=== PATIENT | male | born 1970 | race African-American/Black ===

== ENCOUNTER 2018-09-23 20:03 | Emergency (ER) | payer SELFPAY ==
[2018-09-23 21:44] LABS: Absolute Lymphocytes (CBC) 1.9 K/uL (0.7-4.9); Absolute Neutrophil 9.2 K/uL (1.8-8.0); Basophils % 0.9 % (0-1.3); Eosinophils % 0.5 % (0-4.4); Hematocrit 33.4 % (39.6-49.0); Lymphocytes % 15.2 % (15.3-44.8); MPV 8.7 fL (7.6-11.3); Monocytes % 7.9 % (3.3-12.3); RBC Red Blood Cell Count 3.43 M/uL (4.33-5.43)
[2018-09-23] MEDS ORDERED: NA CHLORIDE 0.9% 500 ML ONE (21:48)
[2018-09-23] MEDS ORDERED: CLINDAMYCIN 900MG/D5W 900 MG/50 ML IVPB IV ONE (21:48)
[2018-09-23 22:01] LABS: BUN Blood Urea Nitrogen 11 mg/dL (7-18); Bicarbonate 30 mmol/L (21-32); Glucose Level 79 mg/dL (74-106); Potassium 4.1 mmol/L (3.5-5.1); Sodium Level 142 mmol/L (136-145)
--- NOTE | 2018-09-23 22:44 | ER ---
Nurse's Notes [facility] Name: Xavi Singh Age: 48 yrs Sex: Male : 1970 Arrival Date: 09/23/2018 Time: 20:17 Bed 6 Private MD: Diagnosis: Dental abscess Presentation: 09/23 20:19 Presenting complaint: Patient states: He has a bad tooth and yesterday his face started aj1 swelling on the right side. Denies shortness of breath. Transition of care: patient was not received from another setting of care. Onset of symptoms was September 22, 2018. Risk Assessment: Do you want to hurt yourself or someone else? Patient reports no desire to harm self or others. Initial Sepsis Screen: Does the patient meet any 2 criteria? No. Patient's initial sepsis screen is negative. Does the patient have a suspected source of infection? No. Patient's initial sepsis screen is negative. Care prior to arrival: None. 20:19 Method Of Arrival: Ambulatory aj1 20:19 Acuity: REAL 4 aj1 Triage Assessment: 20:20 General: Appears in no apparent distress. uncomfortable, Behavior is calm, cooperative, aj1 appropriate for age. Pain: Complains of pain in mouth Pain currently is 10 out of 10 on a pain scale. Neuro: Level of Consciousness is awake, alert, obeys commands. Cardiovascular: Patient's skin is warm and dry. Respiratory: Airway is patent Respiratory effort is even, unlabored, Respiratory pattern is regular, symmetrical. Historical: - Allergies: 20:20 No Known Allergies; aj1 - Home Meds: 20:20 None [Active]; aj1 - PMHx: 20:20 None; aj1 - PSHx: 20:20 None; aj1 - Immunization history:: Flu vaccine is not up to date. - Social history:: Smoking status: Patient uses tobacco products, smokes one pack cigarettes per day. - Ebola Screening: : Patient denies travel to an Ebola-affected area in the 21 days before illness onset. Screenin:40 Abuse screen: Denies threats or abuse. Nutritional screening: No deficits noted. tl2 Tuberculosis screening: No symptoms or risk factors identified. Fall Risk None identified. Assessment: 20:40 General: Appears in no apparent distress. uncomfortable, Behavior is calm, cooperative, tl2 appropriate for age. Pain: Complains of pain in mouth. Neuro: Level of Consciousness is awake, alert, obeys commands, Oriented to person, place, time, situation. Cardiovascular: Denies chest pain. Respiratory: Airway is patent Respiratory effort is even, unlabored, Respiratory pattern is regular, symmetrical. GI: No signs and/or symptoms were reported involving the gastrointestinal system. : No signs and/or symptoms were reported regarding the genitourinary system. EENT: Poor dentition noted. Dental caries noted in upper right second molar (#2), upper right first molar (#3), lower right first molar (#30) and lower right second molar (#31). Derm: Skin is pink, warm \T\ dry. Vital Signs: 20:20 BP 128 / 73; Pulse 86; Resp 18; Temp 98.1; Pulse Ox 99% on R/A; Weight 86.64 kg (R); aj1 Height 6 ft. 1 in. (185.42 cm) (R); Pain 10/10; 23:26 BP 119 / 70; Pulse 82; Resp 18; Pulse Ox 99% on R/A; tl2 20:20 Body Mass Index 25.20 (86.64 kg, 185.42 cm) aj1 ED Course: 20:17 Patient arrived in ED. aj1 20:19 Triage completed. aj1 20:20 Arm band placed on Patient placed in an exam room. aj1 20:55 Brian Padilla PA is PHCP. cp 20:55 Denis Villela MD is Attending Physician. cp 21:13 Fatmata Monahan, MELVI is Primary Nurse. aj1 21:43 Inserted saline lock: 22 gauge in right antecubital area, using aseptic technique. tl2 Blood collected. 22:42 Helio Reyes DDS is Referral Physician. cp 23:26 Patient has correct armband on for positive identification. Bed in low position. Call tl2 light in reach. Side rails up X 1. Adult w/ patient. 23:26 No provider procedures requiring assistance completed. IV discontinued, intact, tl2 bleeding controlled, No redness/swelling at site. Pressure dressing applied. Administered Medications: 21:42 Drug: Clindamycin 900 mg Route: IVPB; Infused Over: 30 mins; Site: right antecubital; tl2 23:28 Follow up: IV Status: Completed infusion tl2 21:42 Drug: NS 0.9% 500 ml Route: IV; Rate: bolus; Site: right antecubital; tl2 23:29 Follow up: IV Status: Completed infusion; IV Intake: 500ml tl2 23:22 Drug: Hydrocodone-Acetaminophen (7.5 mg-325 mg) 1 tabs Route: PO; tl2 23:29 Follow up: Response: No adverse reaction; Medication administered at discharge. tl2 Intake: 23:29 IV: 500ml; Total: 500ml. tl2 Outcome: 22:43 Discharge ordered by MD. cp 23:26 Discharged to home ambulatory, with family. tl2 23:26 Condition: stable 23:26 Discharge instructions given to patient, Instructed on discharge instructions, follow up and referral plans. medication usage, Demonstrated understanding of instructions, follow-up care, medications, Prescriptions given X 3. 23:30 Patient left the ED. tl2 Signatures: Fatmata Monahan RN RN aj1 Brian Padilla PA PA Radha Hogue RN RN tl2 Corrections: (The following items were deleted from the chart) 23:26 20:40 BP 119 / 70; Pulse 82bpm; Resp 18bpm; Pulse Ox 99% RA; tl2 tl2
--- NOTE | 2018-09-23 22:44 | EDPHYS ---
Physician Documentation [facility] Name: Xavi Singh Age: 48 yrs Sex: Male : 1970 Arrival Date: 09/23/2018 Time: 20:17 Bed 6 Private MD: ED Physician Denis Villela HPI: 09/23 21:10 This 48 yrs old Black Male presents to ER via Ambulatory with complaints of Facial cp Swelling. 21:10 The patient presents with pain, swelling. The problem is located in the right upper cp tooth. 21:10 Onset: The symptoms/episode began/occurred yesterday, and became worse today. Duration: cp The symptoms are continuous, and are steadily getting worse. Associated signs and symptoms: Pertinent negatives: fever, inability to eat. Severity of symptoms: in the emergency department the symptoms are unchanged, despite home interventions. Historical: - Allergies: 20:20 No Known Allergies; aj1 - Home Meds: 20:20 None [Active]; aj1 - PMHx: 20:20 None; aj1 - PSHx: 20:20 None; aj1 - Immunization history:: Flu vaccine is not up to date. - Social history:: Smoking status: Patient uses tobacco products, smokes one pack cigarettes per day. - Ebola Screening: : Patient denies travel to an Ebola-affected area in the 21 days before illness onset. ROS: 21:15 Constitutional: Negative for body aches, chills, fever, poor PO intake. cp 21:15 Eyes: Negative for injury, pain, redness, and discharge. cp 21:15 ENT: Positive for dental pain, Negative for drainage from ear(s), ear pain, difficulty swallowing, difficulty handling secretions. 21:15 Respiratory: Negative for cough, shortness of breath, wheezing. 21:15 Abdomen/GI: Negative for abdominal pain, nausea, vomiting, and diarrhea. 21:15 Skin: Positive for swelling, of the face. 21:15 All other systems are negative. Exam: 21:22 Constitutional: The patient appears in no acute distress, alert, awake, non-toxic, well cp developed, well nourished. 21:22 Head/face: Noted is swelling, that is mild, of the right cheek. cp 21:22 Eyes: Periorbital structures: appear normal, Pupils: equal, round, and reactive to light and accomodation, Extraocular movements: intact throughout, Conjunctiva: normal, no exudate, no injection, Sclera: no appreciated abnormality, Lids and lashes: appear normal, bilaterally. 21:22 ENT: External ear(s): are unremarkable, Ear canal(s): are normal, clear, TM's: dullness, bilaterally, Nose: is normal, Mouth: Lips: moist, Oral mucosa: pink and intact, moist, Posterior pharynx: Airway: no evidence of obstruction, patent, Tonsils: are normal in appearance, Dental exam: abscess, that is moderate, specifically in the upper right cuspid (#6), dental caries, that is severe, diffusely, pain, Voice: is normal. 21:22 Chest/axilla: Inspection: normal, Palpation: is normal, no crepitus, no tenderness. 21:22 Cardiovascular: Rate: normal, Rhythm: regular. 21:22 Respiratory: the patient does not display signs of respiratory distress, Respirations: normal, no use of accessory muscles, no retractions, no splinting, no tachypnea, Breath sounds: are clear throughout, no decreased breath sounds, no stridor, no wheezing. 21:22 Abdomen/GI: Inspection: abdomen appears normal, Palpation: abdomen is soft and non-tender, in all quadrants. 21:22 Neuro: Orientation: to person, place \T\ time. Mentation: is normal. Vital Signs: 20:20 BP 128 / 73; Pulse 86; Resp 18; Temp 98.1; Pulse Ox 99% on R/A; Weight 86.64 kg (R); aj1 Height 6 ft. 1 in. (185.42 cm) (R); Pain 10/10; 23:26 BP 119 / 70; Pulse 82; Resp 18; Pulse Ox 99% on R/A; tl2 20:20 Body Mass Index 25.20 (86.64 kg, 185.42 cm) aj1 MDM: 20:55 Patient medically screened. cp 22:42 Data reviewed: vital signs, nurses notes, lab test result(s), and as a result, I will cp discharge patient. 22:42 Counseling: I had a detailed discussion with the patient and/or guardian regarding: the cp historical points, exam findings, and any diagnostic results supporting the discharge/admit diagnosis, lab results, the need for outpatient follow up, a dentist, to return to the emergency department if symptoms worsen or persist or if there are any questions or concerns that arise at home. ED course: VSS. Abscess drained with manual palpation of area. Will discharge to home for continued monitoring. 09/23 21:05 Order name: CBC with Diff; Complete Time: 22:42 cp 09/23 22:42 Interpretation: Normal except: WBC 12.2; RBC 3.43; HGB 11.5; HCT 33.4; CHRIS% 75.5; LYM% cp 15.2; NEUT A 9.2. 09/23 21:05 Order name: BMP; Complete Time: 22:42 cp 09/23 21:05 Order name: IV; Complete Time: 21:33 cp Administered Medications: 21:42 Drug: Clindamycin 900 mg Route: IVPB; Infused Over: 30 mins; Site: right antecubital; tl2 23:28 Follow up: IV Status: Completed infusion tl2 21:42 Drug: NS 0.9% 500 ml Route: IV; Rate: bolus; Site: right antecubital; tl2 23:29 Follow up: IV Status: Completed infusion; IV Intake: 500ml tl2 23:22 Drug: Hydrocodone-Acetaminophen (7.5 mg-325 mg) 1 tabs Route: PO; tl2 23:29 Follow up: Response: No adverse reaction; Medication administered at discharge. tl2 Disposition: 23:45 Chart complete. cp Disposition: 09/23/18 22:43 Discharged to Home. Impression: Dental abscess. - Condition is Stable. - Discharge Instructions: Dental Abscess, Dental Pain. - Prescriptions for Clindamycin HCl 300 mg Oral Capsule - take 1 capsule by ORAL route every 6 hours for 10 days; 40 capsule. Ibuprofen 800 mg Oral Tablet - take 1 tablet by ORAL route every 8 hours As needed take with food; 30 tablet. Tylenol- Codeine #3 300-30 mg Oral Tablet - take 2 tablets by ORAL route every 6 hours As needed no driving while taking medication; 15 tablet. - Medication Reconciliation Form, Thank You Letter, Antibiotic Education, Prescription Opioid Use form. - Follow up: Helio Reyes DDS; When: 2 - 3 days; Reason: Recheck today's complaints. - Problem is new. - Symptoms have improved. Signatures: Dispatcher [employer] EDAZ Fatmata Monahan RN RN aj1 Brian Padilla PA PA cp Radha Avery RN RN tl2 Corrections: (The following items were deleted from the chart) 23:30 22:43 09/23/2018 22:43 Discharged to Home. Impression: Dental abscess. Condition is tl2 Stable. Forms are Medication Reconciliation Form, Thank You Letter, Antibiotic Education, Prescription Opioid Use. Follow up: Helio Reyes; When: 2 - 3 days; Reason: Recheck today's complaints. Problem is new. Symptoms have improved. cp
[2018-09-23] MEDS ORDERED: HYDROCODONE/APAP 7.5/325 MG TAB ONE (23:21)
== END 2018-09-23 23:30 | disposition home or self-care (01) ==
LOC: ER 20:03
DX: K04.7 Periapical abscess without sinus (principal); F17.210 Nicotine dependence, cigarettes, uncomplicated
CPT/HCPCS: 36415; 80048; 85025; 96365; 96366; 99284

== ENCOUNTER 2019-05-05 08:58 | Emergency (ER) | payer SELFPAY ==
[2019-05-05] MEDS ORDERED: ONDANSETRON 4 MG/2 ML VIAL ONE (09:52)
[2019-05-05] MEDS ORDERED: NA CHLORIDE 0.9% 1,000 ML ONE (09:52)
[2019-05-05 10:05] LABS: ALT/SGPT 24 U/L (12-78); AST/SGOT 23 U/L (15-37); Albumin 4.7 g/dL (3.4-5.0); Alkaline Phosphatase 83 U/L (45-117); BUN Blood Urea Nitrogen 33 mg/dL (7-18); Bicarbonate 28 mmol/L (21-32); Bilirubin Direct 0.2 mg/dL (0-0.2); Bilirubin Total 0.8 mg/dL (0.2-1.0); Creatine Phosphokinase 252 U/L (39-308); Glucose Level 100 mg/dL (74-106); Lipase 196 U/L (73-393); Potassium 3.5 mmol/L (3.5-5.1); Sodium Level 138 mmol/L (136-145); Troponin (Emerg Dept Use Only) < 0.02 ng/mL (0.0-0.045)
[2019-05-05 10:21] LABS: Absolute Lymphocytes (CBC) 1.7 K/uL (0.7-4.9); Basophils % 1.2 % (0-1.3); Hematocrit 45.2 % (39.6-49.0); Lymphocytes % 19.8 % (15.3-44.8); MPV 10.1 fL (7.6-11.3); RBC Red Blood Cell Count 4.69 M/uL (4.33-5.43)
[2019-05-05 10:31] LABS: Urine Blood TRACE (NEG); Urine Glucose NEGATIVE (NEG); Urine Protein 2+ (NEG); Urine Specific Gravity 1.025 (1.005-1.030)
--- NOTE | 2019-05-05 11:27 | ER ---
Nurse's Notes [facility] Name: Xavi Singh Age: 48 yrs Sex: Male : 1970 Arrival Date: 05/05/2019 Time: 09:00 Bed 4 Private MD: Diagnosis: Dehydration Presentation: 05/05 09:19 Presenting complaint: Patient states: got overheated at work 2 days ago, works outside as a sandblaster, was vomiting all day yesterday, last vomited at 2 am, this morning he tried to go to work and he broke out in a cold sweat. Transition of care: patient was not received from another setting of care. Onset of symptoms was May 05, 2019. Risk Assessment: Do you want to hurt yourself or someone else? Patient reports no desire to harm self or others. Initial Sepsis Screen: Does the patient meet any 2 criteria? No. Patient's initial sepsis screen is negative. Does the patient have a suspected source of infection? No. Patient's initial sepsis screen is negative. Care prior to arrival: None. 09:19 Method Of Arrival: Ambulatory 09:19 Acuity: REAL 3 iw Historical: - Allergies: 09:21 No Known Allergies; iw - Home Meds: 09:21 None [Active]; iw - PMHx: 09:21 None; iw - PSHx: 09:21 None; iw - Immunization history:: Adult Immunizations unknown. - Ebola Screening: : Patient negative for fever greater than or equal to 101.5 degrees Fahrenheit, and additional compatible Ebola Virus Disease symptoms Patient denies exposure to infectious person Patient denies travel to an Ebola-affected area in the 21 days before illness onset No symptoms or risks identified at this time. - Family history:: not pertinent. - Social history:: Smoking status: unknown. - Hospitalizations: : No recent hospitalization is reported. Screenin:17 Abuse screen: Denies threats or abuse. Denies injuries from another. Nutritional ph screening: On. Tuberculosis screening: No symptoms or risk factors identified. Fall Risk None identified. Assessment: 09:40 General: Appears in no apparent distress. uncomfortable, Behavior is calm, cooperative, jl7 appropriate for age. Pain: Denies pain. Neuro: Level of Consciousness is awake, alert, obeys commands, Oriented to person, place, time, situation. Cardiovascular: Patient's skin is warm and dry. Respiratory: Airway is patent Respiratory effort is even, unlabored, Respiratory pattern is regular, symmetrical. GI: Reports nausea, vomiting. : Reports dark urine. EENT: Derm: Skin is dry, Skin is normal, Skin temperature is warm. Musculoskeletal: No signs and/or symptoms reported regarding the musculoskeletal system. 10:40 Reassessment: Patient appears in no apparent distress at this time. Patient and/or jl7 family updated on plan of care and expected duration. Pain level reassessed. Patient is alert, oriented x 3, equal unlabored respirations, skin warm/dry/pink. Patient states feeling better. Vital Signs: 09:21 BP 132 / 100; Pulse 89; Resp 16; Temp 98.0(O); Pulse Ox 99% on R/A; Pain 8/10; iw 10:09 BP 144 / 92; Pulse 63; Resp 18 S; Pulse Ox 100% on R/A; jl7 10:39 BP 135 / 85; Pulse 64; Resp 16 S; Pulse Ox 100% on R/A; jl7 11:39 BP 145 / 85; Pulse 59; Resp 16 S; Pulse Ox 100% on R/A; jl7 ED Course: 09:00 Patient arrived in ED. as 09:12 Marko Phillips MD is Attending Physician. rn 09:13 Soo Ulloa, MELVI is Primary Nurse. ph 09:17 Patient has correct armband on for positive identification. Placed in gown. Bed in low ph position. Call light in reach. Side rails up X 1. Pulse ox on. NIBP on. Door closed. Noise minimized. Warm blanket given. Head of bed elevated. 09:19 Arm band placed on Patient placed in an exam room. ph 09:21 Triage completed. iw 09:37 Initial lab(s) drawn, by la, sent to lab. Inserted saline lock: 20 gauge in left jl7 forearm, using aseptic technique. Blood collected. 09:49 EKG done, by broadcast maintenance technician. reviewed by Marko Phillips MD. at1 10:23 Urine collected: clean catch specimen, clear, yanely colored. jl7 10:38 Primary Nurse role handed off by Soo Ulloa, MELVI jl7 10:38 Yusra Mas RN is Primary Nurse. jl7 11:39 No provider procedures requiring assistance completed. IV discontinued, intact, jl7 bleeding controlled, No redness/swelling at site. Pressure dressing applied. Administered Medications: 09:56 Drug: NS 0.9% 1000 ml Route: IV; Rate: 1000 ml; Site: left forearm; jl7 10:55 Follow up: IV Status: Completed infusion; IV Intake: 1000ml jl7 09:57 Drug: Zofran 4 mg Route: IVP; Site: left forearm; jl7 10:23 Follow up: Response: No adverse reaction; Nausea is decreased jl7 Intake: 10:55 IV: 1000ml; Total: 1000ml. jl7 Outcome: 11:26 Discharge ordered by . rn 11:39 Discharged to home ambulatory. jl7 11:39 Condition: stable 11:39 Discharge instructions given to patient, Instructed on discharge instructions, follow up and referral plans. Demonstrated understanding of instructions, follow-up care. 11:40 Patient left the ED. jl7 Signatures: Naomi Posey Irene, RN RN Marko Phillips MD MD rn Gonzales, Amanda, quantitative consultant EKG Tat1 Soo Ulloa RN RN Yusra Mas RN RN jl7 Corrections: (The following items were deleted from the chart) 09:19 09:18 Initial Sepsis Screen: Does the patient meet any 2 criteria? ph ph
--- NOTE | 2019-05-05 11:28 | EDPHYS ---
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 Better now, + dark urine, feels "off".. Onset: The symptoms/episode began/occurred 2 day(s) ago. Severity of symptoms: At their worst the symptoms were moderate in the emergency department the symptoms have improved. The patient has not experienced similar symptoms in the past. The patient has not recently seen a physician. Historical: - Allergies: 09:21 No Known Allergies; iw - Home Meds: 09:21 None [Active]; iw - PMHx: 09:21 None; iw - PSHx: 09:21 None; iw - Immunization history:: Adult Immunizations unknown. - Ebola Screening: : Patient negative for fever greater than or equal to 101.5 degrees Fahrenheit, and additional compatible Ebola Virus Disease symptoms Patient denies exposure to infectious person Patient denies travel to an Ebola-affected area in the 21 days before illness onset No symptoms or risks identified at this time. - Family history:: not pertinent. - Social history:: Smoking status: unknown. - Hospitalizations: : No recent hospitalization is reported. ROS: 09:23 Constitutional: Negative for fever, chills, and weight loss, Eyes: Negative for injury, rn pain, redness, and discharge, Neck: Negative for injury, pain, and swelling, Cardiovascular: Negative for chest pain, palpitations, and edema, Respiratory: Negative for shortness of breath, cough, wheezing, and pleuritic chest pain, Abdomen/GI: Negative for abdominal pain, vomiting, diarrhea, and constipation, MS/Extremity: Negative for injury and deformity, Skin: Negative for injury, rash, and discoloration, Neuro: Negative for headache, numbness, tingling, and seizure. Exam: 09:23 Constitutional: This is a well developed, well nourished patient who is awake, alert, rn and in no acute distress. Ambulatory to room without difficulty or distress Head/Face: Normocephalic, atraumatic. Eyes: Pupils equal round and reactive to light, extra-ocular motions intact. Lids and lashes normal. Conjunctiva and sclera are non-icteric and not injected. Cornea within normal limits. Periorbital areas with no swelling, redness, or edema. ENT: dry MM Neck: Trachea midline, no thyromegaly or masses palpated, and no cervical lymphadenopathy. Supple, full range of motion without nuchal rigidity, or vertebral point tenderness. No Meningismus. Cardiovascular: Regular rate and rhythm with a normal S1 and S2. No gallops, murmurs, or rubs. Normal PMI, no JVD. No pulse deficits. Respiratory: Lungs have equal breath sounds bilaterally, clear to auscultation. No increased work of breathing, no retractions or nasal flaring. Abdomen/GI: soft, non-tender, no masses MS/ Extremity: Pulses equal, no cyanosis. Neurovascular intact. Full, normal range of motion. Equal circumference. Neuro: Awake and alert, GCS 15, oriented to person, place, time, and situation. Cranial nerves II-XII grossly intact. Motor strength 5/5 in all extremities. Sensory grossly intact. Cerebellar exam normal. Normal gait. 11:01 ECG was reviewed by the Attending Physician. rn Vital Signs: 09:21 BP 132 / 100; Pulse 89; Resp 16; Temp 98.0(O); Pulse Ox 99% on R/A; Pain 8/10; iw 10:09 BP 144 / 92; Pulse 63; Resp 18 S; Pulse Ox 100% on R/A; jl7 10:39 BP 135 / 85; Pulse 64; Resp 16 S; Pulse Ox 100% on R/A; jl7 11:39 BP 145 / 85; Pulse 59; Resp 16 S; Pulse Ox 100% on R/A; jl7 MDM: 09:12 Patient medically screened. rn 11:23 Differential Diagnosis dehydration, nausea. Data reviewed: vital signs, nurses notes, cerner analyst test result(s), EKG, and as a result, I will discharge patient. Counseling: I had a detailed discussion with the patient and/or guardian regarding: the historical points, exam findings, and any diagnostic results supporting the discharge/admit diagnosis, lab results, the need for outpatient follow up, to return to the emergency department if symptoms worsen or persist or if there are any questions or concerns that arise at home. Special discussion: I discussed with the patient/guardian in detail that at this point there is no indication for admission to the hospital. It is understood, however, that if the symptoms persist or worsen the patient needs to return immediately for re-evaluation. ED course: Neg trop, nonspecific ECG, improved with fluids, sleeping comfortably, will dc home. Has next 3 days off for recuperation. Return precautions given and understood. . 05/05 09:19 Order name: CBC with Diff; Complete Time: 11:00 rn 05/05 09:19 Order name: Basic Metabolic Panel; Complete Time: 11:00 rn 05/05 09:19 Order name: Troponin (emerg Dept Use Only); Complete Time: 11:00 rn 05/05 09:19 Order name: LFT's; Complete Time: 11:00 rn 05/05 09:19 Order name: Lipase; Complete Time: 11:00 rn 05/05 09:19 Order name: CK; Complete Time: 11:00 rn 05/05 09:19 Order name: IV Start; Complete Time: 09:36 rn 05/05 09:19 Order name: EKG; Complete Time: 09:21 rn 05/05 09:19 Order name: EKG - Nurse/Tech; Complete Time: 09:36 rn 05/05 09:19 Order name: Urine Dipstick-Ancillary (obtain specimen); Complete Time: 10:23 rn 05/05 10:24 Order name: Urine Dipstick--Ancillary (enter results) eb EC:01 Rate is 63 beats/min. Rhythm is regular. QRS [place] is Normal. MA interval is normal. QRS rn interval is normal. QT interval is normal. No Q waves. T waves are Normal. No ST changes noted. Clinical impression: NSR w/ Non-specific ST/T Changes. Reviewed by me. Administered Medications: 09:56 Drug: NS 0.9% 1000 ml Route: IV; Rate: 1000 ml; Site: left forearm; jl7 10:55 Follow up: IV Status: Completed infusion; IV Intake: 1000ml jl7 09:57 Drug: Zofran 4 mg Route: IVP; Site: left forearm; jl7 10:23 Follow up: Response: No adverse reaction; Nausea is decreased jl7 Disposition: 05/05/19 11:26 Discharged to Home. Impression: Dehydration. - Condition is Stable. - Discharge Instructions: Dehydration, Adult. - Medication Reconciliation Form, Thank You Letter, Antibiotic Education, Prescription Opioid Use, Work release form form. - Follow up: Private Physician; When: As needed; Reason: Recheck today's complaints, Re-evaluation by your physician. - Problem is new. - Symptoms have improved. Signatures: Dispatcher [employer] EDNoemí Woods RN RN iw Nieto, Roman, MD MD rn Leal, Jahala, RN RN jl7 Corrections: (The following items were deleted from the chart) 11:40 11:26 05/05/2019 11:26 Discharged to Home. Impression: Dehydration. Condition is jl7 Stable. Forms are Medication Reconciliation Form, Thank You Letter, Antibiotic Education, Prescription Opioid Use. Follow up: Private Physician; When: As needed; Reason: Recheck today's complaints, Re-evaluation by your physician. Problem is new. Symptoms have improved. rn
--- NOTE | 2019-05-05 11:45 | EKG ---
Test Date: 2019-05-05 Test Time: 09:36:42 Computer Video Game Designer: RICHY MEASUREMENT RESULTS: Intervals: Rate: 63 OH: 118 QRSD: 92 QT: 400 QTc: 409 [place]: P: 60 OH: 118 QRS: 73 T: 70 INTERPRETIVE STATEMENTS: Normal sinus rhythm Voltage criteria for left ventricular hypertrophy Early repolarization Abnormal ECG No previous ECG available for comparison Electronically Signed On 05-05-19 11:44:28 CDT by Luis Dean
== END 2019-05-05 11:40 | disposition home or self-care (01) ==
LOC: ER 08:58
DX: E86.0 Dehydration (principal)
CPT/HCPCS: 36415; 80048; 80076; 81003; 82550; 83690; 84484; 85025; 93005; 96361; 96374; 99284; J2405; J7030

== ENCOUNTER 2025-01-29 12:14 | Inpatient (IN) | payer SELFPAY ==
--- NOTE | 2025-01-29 13:15 | RAD REPORT ---
EXAMINATION: ULTRASOUND DUPLEX OF SCROTUM AND TESTICLES CLINICAL INDICATION: Testicular pain TECHNIQUE: Duplex scan of the scrotal contents was performed including real-time color and spectral D oppler ultrasonography with arterial inflow and venous outflow. COMPARISON: No prior exam. FINDINGS: Right testicle measures 3.3 x 1.9 x 3.9 cm with a normal echotexture. Normal blood flow. Left testicle measures 3.5 x 1.9 x 2.9 cm with a normal echotexture. Normal blood flow. Right epididymis normal in size and echotexture. Normal blood flow Left epididymis normal in size and echotexture. Normal blood flow. 5 mm left spermatocele IMPRESSION: 5 mm left spermatocele. No significant abnormalities displayed
[2025-01-29 15:17] LABS: Absolute Basophils 0.1 K/uL (0-0.5); Absolute Lymphocytes (CBC) 2.1 K/uL (0.7-4.9); Absolute Monocytes 0.6 K/uL (0.1-1.3); Absolute Neutrophil 6.6 K/uL (1.8-8.0); Basophils % 1.3 % (0-1.3); Eosinophils % 0.4 % (0-4.4); Hematocrit 38.5 % (39.6-49.0); Lymphocytes % 22.3 % (15.3-44.8); MCH 32.3 pg (27.0-35.0); MCHC 33.8 g/dL (32.0-36.0); MCV 95.6 fL (80-100); MPV 8.5 fL (7.6-11.3); Monocytes % 6.6 % (3.3-12.3); Neutrophils % 69.4 % (41.7-73.7); Platelets 252 thou/uL (152-406); RBC Red Blood Cell Count 4.02 M/uL (4.33-5.43); Red Cell Distribution Width 13.3 % (12.1-15.2)
[2025-01-29 15:34] LABS: Albumin 3.8 g/dL (3.4-5.0); Albumin/Globulin Ratio 0.9 (1.1-1.8); Anion Gap 7.4 mEq/L (5.0-15.0); Bilirubin Total 0.6 mg/dL (0.2-1.0); Globulin 4.1 g/dL (2.3-3.5); Potassium 3.4 mEq/L (3.5-5.1); Protein, Total 7.9 g/dL (6.4-8.2)
[2025-01-29] MEDS ORDERED: MORPHINE 4 MG/ML SYR ONE (16:43)
[2025-01-29] MEDS ORDERED: ONDANSETRON 4 MG/2 ML VIAL ONE (16:43)
[2025-01-29] MEDS ORDERED: NA CHLORIDE 0.9% 1,000 ML ONE (16:44)
--- NOTE | 2025-01-29 17:50 | RAD REPORT ---
EXAMINATION: CT ABDOMEN AND PELVIS WITH CONTRAST CLINICAL INDICATION: Abdominal pain TECHNIQUE: CT abdomen and pelvis was performed, after the administration of 100 cc Isovue-300.. Sagit pj and coronal reconstructions were obtained. One or more of the following dose reduction techniques were used: Automated exposure control, adjustment of the mA and kV according to patient si ze, and iterative reconstruction. Unless otherwise specified, incidental findings do not require dedicated imaging follow-up. [id number]. Oral contrast was not given which limits evaluation of bowel and appendix. COMPARISON: .None FINDINGS: Liver, spleen, pancreas, and adrenals appear unremarkable. Small renal cysts. Bladder wall thickening. No evidence of diverticulitis. 2.2 cm low-density mass within the perineum midline. It has an enhancing wall. This has the appearanc e of an abscess. : IMPRESSION: 2.2 cm abscess perineum Thickening of the bladder wall may indicate inflammation.
--- NOTE | 2025-01-29 18:01 | ER ---
Nurse's Notes [facility] Name: Xavi Singh Age: 54 yrs Sex: Male : 1970 Arrival Date: 01/29/2025 Time: 12:14 Bed 12 Private MD: Diagnosis: 2.2cm abscess to perineum Presentation: 01/29 12:28 Chief complaint: Swelling and pain on perineum x 1 week. Coronavirus screen: At this hb time, the client does not indicate any symptoms associated with coronavirus-19. Ebola Screen: No symptoms or risks identified at this time. Initial Sepsis Screen: Does the patient meet any 2 criteria? No. Patient's initial sepsis screen is negative. Does the patient have a suspected source of infection? No. Patient's initial sepsis screen is negative. Risk Assessment: Do you want to hurt yourself or someone else? Patient reports no desire to harm self or others. Onset of symptoms was January 23, 2025. 12:28 Method Of Arrival: Ambulatory hb 12:30 Acuity: REAL 3 hb Historical: - Allergies: 12:29 No Known Allergies; hb - Home Meds: 12:29 None [Active]; hb - PMHx: 12:29 Hypertensive disorder; hb - PSHx: 12:29 None; hb - Immunization history:: Adult Immunizations up to date. - Infectious Disease History:: Denies. - Social history:: Smoking status: Patient reports the use of cigarette tobacco products, Reported history of juuling and/or vaping. Screenin:59 [facility] ED Fall Risk Assessment (Adult) History of falling in the last 3 months, jb4 including since admission No falls in past 3 months (0 pts) Confusion or Disorientation No (0 pts) Intoxicated or Sedated No (0 pts) Impaired Gait No (0 pts) Mobility Assist Device Used No (0 pt) Altered Elimination No (0 pt) Score/Fall Risk Level 0 - 2 = Low Risk Oriented to surroundings, Maintained a safe environment. Abuse screen: Denies threats or abuse. Nutritional screening: No deficits noted. Tuberculosis screening: No symptoms or risk factors identified. Assessment: 15:10 Reassessment: No changes from previously documented assessment. Patient and/or family ll1 updated on plan of care and expected duration. Pain level reassessed. 15:30 General: Appears in no apparent distress. comfortable, Behavior is calm, cooperative, jb4 appropriate for age. Pain: Complains of pain in groin Pain does not radiate. Pain currently is 3 out of 10 on a pain scale. Neuro: Level of Consciousness is awake, alert, obeys commands, Oriented to person, place, time, situation. Cardiovascular: Patient's skin is warm and dry. Respiratory: Airway is patent Respiratory effort is even, unlabored, Respiratory pattern is regular, symmetrical. Derm: Skin is intact, Skin is pink, warm \T\ dry. Musculoskeletal: Circulation, motion, and sensation intact. Range of motion: intact in all extremities. 16:18 Reassessment: Patient appears in no apparent distress at this time. Patient and/or jb4 family updated on plan of care and expected duration. Pain level reassessed. Patient is alert, oriented x 3, equal unlabored respirations, skin warm/dry/pink. 17:00 Reassessment: Patient appears in no apparent distress at this time. Patient and/or jb4 family updated on plan of care and expected duration. Pain level reassessed. Patient is alert, oriented x 3, equal unlabored respirations, skin warm/dry/pink. 19:00 Reassessment: Patient appears in no apparent distress at this time. Patient and/or jb4 family updated on plan of care and expected duration. Pain level reassessed. Patient is alert, oriented x 3, equal unlabored respirations, skin warm/dry/pink. 20:00 Reassessment: Patient appears in no apparent distress at this time. Patient and/or jb4 family updated on plan of care and expected duration. Pain level reassessed. Patient is alert, oriented x 3, equal unlabored respirations, skin warm/dry/pink. Vital Signs: 12:30 BP 119 / 82; Pulse 95; Resp 16; Temp 98.5; Pulse Ox 100% on R/A; Weight 73.48 kg; hb Height 6 ft. 1 in. ; Pain 8/10; 16:26 BP 120 / 91; Pulse 70; Resp 16; Pulse Ox 100% on R/A; jb4 19:34 BP 146 / 91; Pulse 67; Resp 16; Pulse Ox 97% on R/A; jb4 12:30 Body Mass Index 21.37 (73.48 kg, 185.42 cm) hb 12:30 Pain Scale: Adult hb ED Course: 12:18 Patient arrived in ED. al6 12:18 Argel[facility] Weeks [facility]C [facility]. kb 12:18 Godwin Dejesus MD is Attending Physician. kb 12:30 Triage completed. hb 12:30 Arm band placed on. hb 13:02 US Scrotum Testicles In Process Unspecified. EDMS 14:29 Patient placed in an exam room, on a stretcher. kb3 14:47 Roman Lemus, MELVI is Primary Nurse. ll1 14:47 Patient has correct armband on for positive identification. Bed in low position. ll1 Provided Education on: ER procedures and process. Warm blanket given. 15:00 Missed attempt(s): 22 gauge in right antecubital area. Bleeding controlled, band aid ll1 applied, catheter tip intact. 15:10 Inserted saline lock: 20 gauge in right antecubital area, using aseptic technique. ll1 Blood collected. Flushed with 10 mL NS. 16:37 CT Abd/Pelvis - IV Contrast Only In Process Unspecified. EDMS 18:01 Wai Phillips MD is Hospitalizing Provider. kb 20:59 No provider procedures requiring assistance completed. Patient admitted, IV remains in jb4 place. Administered Medications: 16:58 Drug: NS 0.9% IV 1000 ml IV at 1000 ml once; to be given as a bolus over 60 minutes jb4 Route: IV; Rate: 1000 ml; Site: right antecubital; 19:35 Follow up: Response: No adverse reaction; IV Status: Completed infusion; IV Intake: jb4 1000ml 16:58 Drug: Ondansetron IVP 4 mg IVP once; over 2 minutes Route: IVP; Site: right antecubital;jb4 19:35 Follow up: Response: No adverse reaction; Marked relief of symptoms jb4 16:58 Drug: morphine IVP or IV 4 mg IVP once over 4 mins Route: IVP; Infused Over: 4 mins; jb4 Site: right antecubital; 19:35 Follow up: Response: No adverse reaction; Marked relief of symptoms jb4 18:20 Drug: Nicoderm CQ Transdermal Patch 21 mg/24 hr 21 mg Transdermal once Route: jb4 Transdermal; Site: affected area; 18:26 Drug: Piperacillin-Tazobactam IVPB 3.375 grams IVPB once over 60 mins; (mix in NS 100 jb4 mL) Route: IVPB; Infused Over: 60 mins; Site: right antecubital; 19:34 Follow up: Response: No adverse reaction; IV Status: Completed infusion; IV Intake: jb4 100ml Intake: 19:34 IV: 100ml; Total: 100ml. jb4 19:35 IV: 1000ml; Total: 1100ml. jb4 Outcome: 18:01 Decision to Hospitalize by Provider. kb 20:59 Admitted to Tele accompanied by nurse, via wheelchair, room 423, with chart, jb4 20:59 Condition: stable 20:59 Discharge instructions given to patient, Instructed on the need for admit, Demonstrated understanding of instructions, 21:01 Patient left the ED. jb4 Signatures: Dispatcher [employer] EDMS Argelia Weeks, DOSIMETRIST-C DOSIMETRIST-CkJennifer Baron, RN RN Renard Flannery RN RN jb4 Roman Lemus RN RN ll1 Mamie Sung RN RN kb3 Shahana Nelson
--- NOTE | 2025-01-29 18:01 | EDPHYS ---
Physician Documentation [facility] Name: Xavi Singh Age: 54 yrs Sex: Male : 1970 Arrival Date: 01/29/2025 Time: 12:14 Bed 12 Private MD: ED Physician Godwin Dejesus HPI: 01/29 12:30 This 54 yrs old Black Male presents to ER via Ambulatory with complaints of Groin Pain. kb 12:30 Pt is a 54 year old male who presents for swelling and irritation to area between kb scrotum and rectum that started one week ago. States the swollen area is golf ball size. Historical: - Allergies: 12:29 No Known Allergies; hb - Home Meds: 12:29 None [Active]; hb - PMHx: 12:29 Hypertensive disorder; hb - PSHx: 12:29 None; hb - Immunization history:: Adult Immunizations up to date. - Infectious Disease History:: Denies. - Social history:: Smoking status: Patient reports the use of cigarette tobacco products, Reported history of juuling and/or vaping. ROS: 12:31 Constitutional: As per HPI kb Exam: 12:31 Constitutional: This is a well developed, well nourished patient who is awake, alert, kb and in no acute distress. Head/Face: Normocephalic, atraumatic. ENT: Moist Mucous membranes Cardiovascular: Regular rate Respiratory: Respirations even and unlabored. No increased work of breathing. Talking in full sentences Abdomen/GI: Soft, non-tender. No distention MS/ Extremity: Pulses equal, no cyanosis. Neurovascular intact. Full, normal range of motion. Neuro: Awake and alert, GCS 15, oriented to person, place, time, and situation. Vital Signs: 12:30 BP 119 / 82; Pulse 95; Resp 16; Temp 98.5; Pulse Ox 100% on R/A; Weight 73.48 kg; hb Height 6 ft. 1 in. ; Pain 8/10; 16:26 BP 120 / 91; Pulse 70; Resp 16; Pulse Ox 100% on R/A; jb4 19:34 BP 146 / 91; Pulse 67; Resp 16; Pulse Ox 97% on R/A; jb4 12:30 Body Mass Index 21.37 (73.48 kg, 185.42 cm) hb 12:30 Pain Scale: Adult hb MDM: 12:18 Medical Screening Exam initiated kb 17:59 Differential diagnosis: torsion, abscess, Kacey's. Data reviewed: vital signs, kb nurses notes. Consideration of Admission/Observation Patient was admitted/placed on observation. Escalation of care including admission/observation considered. Management of patient was discussed with the following: Photographer: Dr Posey accepts pt for consult. Wants pt admitted to hospitalistjadeno after midnight. Counseling: I had a detailed discussion with the patient and/or guardian regarding the historical points, exam findings, and any diagnostic results supporting the discharge/admit diagnosis, lab results, radiology results, the need for further work-up and treatment in the hospital. 18:03 Management of patient was discussed with the following: Hospitalist: JADEN Mark accepts kb pt for admission under Dr Phillips. 01/29 14:54 Order name: CBC with Diff; Complete Time: 15:21 kb 01/29 14:54 Order name: CMP; Complete Time: 15:35 kb 01/29 12:30 Order name: US Scrotum Testicles; Complete Time: 13:16 kb 01/29 14:54 Order name: CT Abd/Pelvis - IV Contrast Only; Complete Time: 17:52 kb 01/29 19:23 Order name: Dr Edyta Posey EDNM 01/29 14:54 Order name: IV Start; Complete Time: 15:10 kb Administered Medications: 16:58 Drug: NS 0.9% IV 1000 ml IV at 1000 ml once; to be given as a bolus over 60 minutes jb4 Route: IV; Rate: 1000 ml; Site: right antecubital; 19:35 Follow up: Response: No adverse reaction; IV Status: Completed infusion; IV Intake: jb4 1000ml 16:58 Drug: Ondansetron IVP 4 mg IVP once; over 2 minutes Route: IVP; Site: right antecubital;jb4 19:35 Follow up: Response: No adverse reaction; Marked relief of symptoms jb4 16:58 Drug: morphine IVP or IV 4 mg IVP once over 4 mins Route: IVP; Infused Over: 4 mins; jb4 Site: right antecubital; 19:35 Follow up: Response: No adverse reaction; Marked relief of symptoms jb4 18:20 Drug: Nicoderm CQ Transdermal Patch 21 mg/24 hr 21 mg Transdermal once Route: jb4 Transdermal; Site: affected area; 18:26 Drug: Piperacillin-Tazobactam IVPB 3.375 grams IVPB once over 60 mins; (mix in NS 100 jb4 mL) Route: IVPB; Infused Over: 60 mins; Site: right antecubital; 19:34 Follow up: Response: No adverse reaction; IV Status: Completed infusion; IV Intake: jb4 100ml Disposition Summary: 01/29/25 18:01 Hospitalization Ordered Notes: Hospitalization Status: Observation kb Provider: Wai Phillips Location: Telemetry/MedSurg (observation) kb Condition: Stable kb Problem: new kb Symptoms: are unchanged kb Bed/Room Type: Standard Room Assignment: 423(01/29/25 19:36) vk Diagnosis - 2.2cm abscess to perineum kb Forms: - Medication Reconciliation Form kb - SBAR form kb - Leadership Thank You Letter kb Signatures: Dispatcher [employer] EDMS Argelia Weeks, COOKER CHIP-C COOKER CHIP-Ckb Jennifer Chavira, RN RN Renard Flannery RN RN Kaitlin Aponte Corrections: (The following items were deleted from the chart) 14:55 14:55 CBC+H.LAB.BRZ ordered. EDMS EDMS 14:55 14:55 COMPREHENSIVE METABOLIC PANEL+C.LAB.BRZ ordered. EDMS EDMS 14:55 14:55 Abdomen Pelvis W Con+CT.RAD.BRZ ordered. EDMS EDMS 19:36 18:01 kb vk
[2025-01-29] MEDS ORDERED: NA CHLORIDE 0.9% 100 ML ONE (18:13)
[2025-01-29] MEDS ORDERED: PIPERACIL/TAZO 3.375 GM VIAL IV ONE (18:13)
[2025-01-29] MEDS ORDERED: NICOTINE 21 MG/PAT TD ONE (18:16)
[2025-01-29] MEDS ORDERED: ACETAMINOPHEN 325 MG TABLET PO PRN (19:21)
--- NOTE | 2025-01-29 19:36 | P.HP ---
Certification for Inpatient Patient admitted to: Inpatient With expected LOS: >2 Midnights Patient will require the following post-hospital care: None Practitioner: I am a practitioner with admitting privileges, knowledge of patient current condition, hospital course, and medical plan of care. Services: Services provided to patient in accordance with Admission requirements found in Title 42 Section 412.3 of the Code of Federal Regulations Patient History Date of Service: 01/30/25 Reason for admission: Perineum abscess. History of Present Illness: Patient is a pleasant 54-year-old male with no past medical history stated by the patient, who reports to the ER today complaining of worsening pain perineum area. States it started on Wednesday of last week. Patient states initially he developed a boil in his perineum area, states the pain progressively worsened today making him difficult to ambulate. States he decided to report to ER today because the pain was very excruciating, describes the pain as aching, constant, and pain scale of 8/10. Patient denies of any chills or fever, denies of associated chest pain or shortness of breath, denies having abdominal pain. On admission assessment, patient remained stable at this time. From report received from ER practitioner, she states that she already contacted the surgeon Dr. Posey, patient is scheduled for I&D tomorrow and will keep n.p.o. after midnight, will start on Zosyn IV. Allergies No Known Allergies Allergy (Verified 01/29/25 21:09) Home medications list reviewed: No (No home meds.) Home Medications: NK [No Home Meds] 01/29/25 - Past Medical/Surgical History Diabetic: No Past Medical History: Reviewed- Non-Contributory - Social History Smoking Status: Current every day smoker Smoking therapy provided: Yes (Declined nicotine patch.) Patient receptive to therapy: No Alcohol use: No CD- Drugs: No Caffeine use: Yes Place of Residence: Home Review of Systems 10-point ROS is otherwise unremarkable General: Other (Reviewed of 10 systems performed with pertinent positives and negatives noted in the HPI above, remainder is performed and negative.), As per HPI Integumentary: Other (Perineum abscess) Physical Examination - Physical Exam General: Alert, In no apparent distress, Oriented x3, Cooperative HEENT: Atraumatic, Normocephalic, PERRLA, Mucous membr. moist/pink Neck: Supple, 2+ carotid pulse no bruit, No Thyromegaly, No LAD, Without JVD or thyroid abnormality Respiratory: Clear to auscultation bilaterally, Normal air movement Cardiovascular: No edema, Normal pulses, Regular rate/rhythm, Normal S1 S2, No gallops, No rubs, No murmurs Capillary refill: <2 Seconds Gastrointestinal: Normal bowel sounds, Soft and benign, Non-distended, W/out hepatomegaly, No ascites, No tenderness, No masses, No rebound, No guarding Musculoskeletal: No clubbing, No swelling, No erythema, No tenderness, No warmth Integumentary: No rashes, No breakdown, No significant lesion, No tenderness/swelling, No erythema, No warmth, No cyanosis, Other (Perineum abscess.) Neurological: Normal gait, Normal speech, Normal strength at 5/5 x4 extr, Normal tone, Sensation intact, Cranial nerves 3-12 intact, Normal reflexes 2+, Normal affect Lymphatics: No axilla or inguinal lymphadenopathy External genitalia: No edema, No lesions, No masses, Non-tender Rectal: Normal - Studies Laboratory Data (last 24 hrs) 01/29/25 01/29/25 15:07 15:07 WBC 9.50 Hgb 13.0 L Hct 38.5 L Plt Count 252 Sodium 138 Potassium 3.4 L BUN 11 Creatinine 1.21 Glucose 126 H Total Bilirubin 0.6 AST 22 ALT 22 Alkaline Phosphatase 94 Male Exam - Male Exam Testicular exam: Non-tender Assessment and Plan - Plan Patient is a pleasant 54-year-old male reports to ER complaining of worsening pain peritoneum area, and difficulty with ambulation secondary to pain. Denies of fever or chills. Patient is diagnosed with perineal abscess. Patient CT abdomen, and pelvis impression-(1) 2.2 cm abscess perineum. (2) thickening of the bladder wall may indicate inflammation. (1)Perineum abscess. According to report received from ER practitioner, he states he called and spoke to Dr. Posey surgeon, who then instructed for patient to be kept n.p.o. after midnight for possible I&D in a.m. -Zosyn 3.375 mg IV every 8 hours. - Morphine 4 mg IV as needed every 4 hours. -IV D5 1/2 NS at 100 mL/ hr to start at midnight since patient will be n.p.o. for the procedure in AM. -Order preop serum magnesium in AM. (2)Hypokalemia of 3.4. -Order one-time dose of potassium 40 mEq p.o. -Repeat a follow-up CMP in the morning. (3)Explained the entire treatment plan to the patient, solicit questions answered and voiced understanding. Discharge Plan: Home - Advance Directives Does patient have a Living Will: No Does patient have a Durable POA for Healthcare: No - Code Status/Comfort Care Code Status Assessed: Yes Code Status: Full Code Critical Care: No Time Spent Managing Pts Care (In Minutes): 55
[2025-01-29 21:11] VITALS: BMI 21.7
[2025-01-29] MEDS: D5 0.45 NS 1,000 ML IV SCH (22:49)
[2025-01-29] MEDS: MORPHINE 4 MG/ML SYR IV PRN (23:48)
[2025-01-29] MEDS: PIPER TAZO 3.375 GM in NA CHLORIDE 0.9% 100 ML IV SCH (23:49)
[2025-01-29] MEDS: POTASSIUM CL SA 10 MEQ TAB PO ONE (23:49)
[2025-01-30 07:28] LABS: Absolute Basophils 0.1 K/uL (0-0.5); Absolute Eosinophils 0.1 K/uL (0-0.5); Absolute Lymphocytes (CBC) 1.2 K/uL (0.7-4.9); Absolute Monocytes 0.6 K/uL (0.1-1.3); Absolute Neutrophil 6.8 K/uL (1.8-8.0); Eosinophils % 0.7 % (0-4.4); Hematocrit 37.3 % (39.6-49.0); Hemoglobin 12.7 g/dL (13.6-17.9); Lymphocytes % 13.5 % (15.3-44.8); MCH 32.4 pg (27.0-35.0); MCV 95.4 fL (80-100); MPV 8.6 fL (7.6-11.3); Monocytes % 7.2 % (3.3-12.3); Neutrophils % 77.6 % (41.7-73.7); Nucleated Red Blood Cells % 0.1 % (0-0); Platelets 239 thou/uL (152-406); RBC Red Blood Cell Count 3.91 M/uL (4.33-5.43)
[2025-01-30 07:46] LABS: Albumin 3.4 g/dL (3.4-5.0); Albumin/Globulin Ratio 0.9 (1.1-1.8); Anion Gap 8.9 mEq/L (5.0-15.0); Bilirubin Total 0.7 mg/dL (0.2-1.0); Globulin 3.7 g/dL (2.3-3.5); Potassium 3.9 mEq/L (3.5-5.1); Protein, Total 7.1 g/dL (6.4-8.2)
[2025-01-30] MEDS ORDERED: ONDANSETRON 4 MG/2 ML VIAL ONE (09:47)
[2025-01-30] MEDS ORDERED: MIDAZOLAM HCL 2 MG/2 ML INJ ONE (09:47)
[2025-01-30] MEDS ORDERED: FENTANYL CITR 100 MCG/2 ML ONE ×2 (09:47→11:13)
[2025-01-30] MEDS ORDERED: LIDOCAINE 2% MPF 5 ML VIAL ONE (09:47)
[2025-01-30] MEDS ORDERED: propofoL 200 MG/20 ML VIAL IV ONE ×2 (09:47→11:00)
[2025-01-30] MEDS ORDERED: Ringers Lactate 1,000 ML IV ONE (10:12)
[2025-01-30 10:28] LABS: Blood Morphology Comment NOTED (NOT SEEN); Differential Total Cells Count 100; Eosinophils 1 % (0-3); Lymphocytes 22 % (15-42); Monocytes 4 % (0-10); Platelet Estimate ADEQ; Reactive Lymphocytes 1 %; Segmented Neutrophils 72 % (40-80); Target Cells 1+
[2025-01-30] MEDS ORDERED: dexAMETHasone 10 MG/ML VIAL ONE (11:07)
[2025-01-30] MEDS: BUPIVACAINE 0.5% PF 10 ML VIAL ONE (11:16)
--- NOTE | 2025-01-30 11:27 | P.BOP ---
Preoperative diagnosis: perineal abscess Postoperative diagnosis: same Primary procedure: I&D perineal complex abscess [id number] Estimated blood loss: <10cc Specimen: culture Findings: abacess Anesthesia: General Complications: None Transferred to: Recovery Room Condition: Good
[2025-01-30 11:41] VITALS: O2SAT 100
[2025-01-30] MEDS ORDERED: HYDROCODONE/APAP 5/325 MG TAB PO PRN (11:46)
--- NOTE | 2025-01-30 12:36 | CON ---
Date of Consultation: 01/30/2025 Diagnosis: Perineal abscess. History Of Present Illness: This is a case of a 54-year-old patient who came to us with a lump in th e perineum. Started about 3 or 4 days ago, started with like a boil on perineum and it got worsened and more painful to the point that he came to the ER, diagnosed with a perineal abscess, and surgical consult was obtained for drainage. Allergies: NONE. Medications: None. Past Medical History: None. Social History: He smokes. He was counseled about smoking cessation. He does not drink alcohol. Family History: Noncontributory. Review of Systems: Perineal pain. No fever. No shortness of breath. No chest pain. No dysuria, hematuria, hematochez ia, or melena. Patient advised about colonoscopy. Physical Examination: Vital Signs: Reviewed. General: Patient is awake and alert. HEENT: Pupils anicteric. Neck: Supple. Chest: Clear. Heart: S1, S2. Abdomen: Soft and depressible. No guarding or rebound. Rectal: No tenderness in the area of the perineum. The patient has about 4 cm area of induration. There is fluctuance. Very tender, erythematous, consistent with at least similar to the findings on the CAT scan of an abscess. Extremities: Good capillary refill. Laboratory Data: Blood work shows WBC count of 9.5, hemoglobin of 13, potassium 3.4, bicarb is 30, c reatinine is 1.2. CAT scan of the abdomen and pelvis and scrotal ultrasound interpreted by Dr. Mehta man with the findings of perineal abscess, small renal cysts, bladder wall thickening. Patient advis ed to see his urologist. Plan: Incision and drainage of a perineal abscess. The benefits, alternatives, and risks fully expl ained, which include, but not limited to, infection, bleeding, damage to adjacent structures, anesthe antonio complication, recurrence, OH, and even . He also understands this may not relieve any sympt oms, he might need more than one surgical intervention. He understood, signed a consent. The patien t understands the need for wound care. Patient was immediately booked in OR. JAIME/TONY Voice ID: [id number] Report ID: [id number]
--- NOTE | 2025-01-30 12:41 | OP ---
Date of Procedure: 01/30/2025 Surgeon: Darrell Posey MD Preoperative Diagnosis: Perineal abscess. Postoperative Diagnosis: Perineal abscess. Procedure: Incision and drainage of complex perineal abscess about 4 x 3 x 1 cm. Estimated Blood Loss: Less than 10 cc. Specimen: Culture. Findings: Abscess. Complications: None. Anesthesia: General. Indications: This is the case of a male, who came to us with a perineal abscess. Benefits, alternat fam, and risks of I and D fully explained, which include, but not limited to, infection, bleeding, d amage to adjacent structures, anesthesia complication, recurrence, VT, and even . He also under stands this may not relieve any symptoms. He might need more than one surgical intervention. He und erstood, signed a consent. Procedure In Detail: Patient was brought to the operating room, placed in supine position. Anesthes ia was induced without complication. The patient was placed in lithotomy position with proper protec tion. Perianal area was prepped and draped in a sterile fashion. Time-out was called. The area of concern was marked previously by me and the patient. So, we made an incision in that area, obtained an abscess pus. We found multiple loculations within the area as explained above. Area was irrigate d. Hemostasis was obtained. Local anesthesia was applied and then the area was packed with quarter of an inch iodoform. The patient tolerated the procedure well and hemostasis was obtained at all time. Patient sent to Recovery in stable condition. JAIME/TONY Voice ID: [id number] Report ID: [id number]
--- NOTE | 2025-01-30 16:27 | P.PN ---
Subjective Date of Service: 01/30/25 Chief Complaint: Perineum abscess. Patient complaining of pain in the perineum. Status post I&D of perineal abscess by Dr. Posey today. No recorded fever. Physical Examination - Vital Signs Temperature: 98.5 F Blood Pressure: 126/79 Pulse: 55 Respirations: 16 Pulse Ox (%): 99 Assessment And Plan - Plan Physical examination General: Alert and oriented x3, NAD, HEENT: Conjunctiva not pale, anicteric sclera Neck: Supple, no elevated JVD Heart: Heart sounds 1 and 2 normal, regular rhythm, normal rate, no pedal edema Lungs: Clear to auscultation bilaterally, adequate breath sounds bilaterally, no rhonchi or crackles. Abdomen: Soft, nondistended, nontender, normal bowel sounds. Extremities: No tenderness, no deformity Skin: Normal skin turgor, no rash, dressed perineal wound. Neuro: No focal motor deficit. Normal speech. Psychiatry: Normal mood, no agitation. Diagnosis Perineal abscess Hypokalemia Plan: Perineum abscess. Status post incision and drainage by Dr. Posey. Analgesics as needed Continue IV Zosyn Follow-up with tissue wound culture Continue IV hydration. Hypokalemia Hypokalemia corrected. Monitor and replace electrolytes as needed DVT prophylaxis: Low risk, ambulatory.
--- NOTE | 2025-01-31 09:25 | P.DS ---
Admission Date: 01/29/25 Discharge Date: 01/31/25 Disposition: ROUTINE DISCHARGE Discharge Condition: FAIR Reason for Admission: Perineum abscess. Hospital Course: Diagnosis Perineal abscess Hypokalemia 54-year-old gentleman presented to the emergency department with a complaint of excruciating pain in the perineum. CT abdomen and pelvis done demonstrated a 2.2 cm perineal abscess. Patient was evaluated by general surgery Dr. Posey who performed incision and drainage. Patient was also treated with antibiotic-IV Zosyn. Surgical tissue culture is showing mixed growth. Patient pain is currently controlled. Vitals are stable He is discharged with oral Bactrim and Flagyl Patient advised to follow-up with Dr. Posey within 1 week. Wound care: Iodoform packing to perineal area daily Vital Signs/Physical Exam: Temp Pulse Resp BP Pulse Ox 98.0 F 73 15 142/74 H 100 01/31/25 08:00 01/31/25 08:00 01/31/25 08:00 01/31/25 08:00 01/31/25 08:00 Laboratory Data at Discharge: WBC 8.80 thou/uL (4.3-10.9) 01/30/25 07:11 Hgb 12.7 g/dL (13.6-17.9) L 01/30/25 07:11 Hct 37.3 % (39.6-49.0) L 01/30/25 07:11 Plt Count 239 thou/uL (152-406) 01/30/25 07:11 Sodium 138 mEq/L (136-145) 01/30/25 07:11 Potassium 3.9 mEq/L (3.5-5.1) D 01/30/25 07:11 BUN 7 mg/dL (7-18) 01/30/25 07:11 Creatinine 1.05 mg/dL (0.70-1.30) 01/30/25 07:11 Glucose 100 mg/dL (74-106) 01/30/25 07:11 Magnesium 2.0 mg/dL (1.6-2.4) 01/31/25 04:35 Total Bilirubin 0.7 mg/dL (0.2-1.0) 01/30/25 07:11 AST 19 U/L (15-37) 01/30/25 07:11 ALT 19 U/L (16-61) 01/30/25 07:11 Alkaline Phosphatase 83 U/L (45-117) 01/30/25 07:11 Home Medications: Hydrocodone 5/APAP 325 [[place] 5/325*] 1 tab PO Q6H PRN #20 tab 01/31/25 Sulfamethoxazole/Trimethoprim [Bactrim Ds Tablet] 1 each PO BID #20 tab 01/31/25 metroNIDAZOLE [Flagyl] 500 mg PO Q8H #30 tab 01/31/25 New Medications: Sulfamethoxazole/Trimethoprim [Bactrim Ds Tablet] 1 each PO BID #20 tab metroNIDAZOLE [Flagyl] 500 mg PO Q8H #30 tab Hydrocodone 5/APAP 325 [[place] 5/325*] 1 tab PO Q6H PRN #20 tab PRN Reason: Pain Scale 5-7 (Moderate) Physician Discharge Instructions: 54-year-old gentleman presented to the emergency department with a complaint of excruciating pain in the perineum. CT abdomen and pelvis done demonstrated a 2.2 cm perineal abscess. Patient was evaluated by general surgery Dr. Posey who performed incision and drainage. Patient was also treated with antibiotic-IV Zosyn. Surgical tissue culture is showing mixed growth. Patient pain is currently controlled. Vitals are stable He is discharged with oral Bactrim and Flagyl Patient advised to follow-up with Dr. Posey within 1 week. Wound care: Iodoform packing to perineal area daily Diet: Regular Activity: Ad mary Followup: Darrell Posey MD [ACTIVE - CAN ADMIT] - 1 Week NONE,NONE [Primary Care Provider] - 1 Week
[2025-01-31 12:31] VITALS: BP 137/88; TEMP 98.1
== END 2025-01-31 12:15 | disposition home or self-care (01) | DRG 581 ==
LOC: ER 12:14 → ERHOLD 19:17 → 4TH 20:01
PROVIDERS: ADMIT Internal Medicine; ATTEND Internal Medicine
PROC: 0D9Q0ZZ Drainage of Anus, Open Approach (ICD-10-PCS; principal; 2025-01-30 10:00)
DX: L02.215 Cutaneous abscess of perineum (principal); I10 Essential (primary) hypertension; E87.6 Hypokalemia; N28.1 Cyst of kidney, acquired; F17.210 Nicotine dependence, cigarettes, uncomplicated; Z79.899 Other long term (current) drug therapy
CPT/HCPCS: 36415; 74177; 76870; 80053; 83735; 84132; 85025; 87070; 87075; 87205; 94010; 96361; 96365; 96375; 99285; J1100; J2003; J2250; J2405; J2543; J2704; J3010; J7030; J7120; J7799; Q9967